=== PATIENT | male | born 1965 | race Hispanic/Latino ===

== ENCOUNTER → 2017-09-11 | Outpatient (CLI) | payer SELFPAY | END | disposition home or self-care (01) | LOC: OIH 14:20 | PROVIDERS: ATTEND Internal Medicine Cardiovascular Disease | DX: Z13.6 Encounter for screening for cardiovascular disorders (principal) | CPT/HCPCS: 75571 ==

== ENCOUNTER 2022-01-14 10:53 | Inpatient (IN) | payer OTHER ==
[~2022-01-14] VITALS: Ht 185.4 cm; Wt 98.9 kg
[~2022-01-14 10:53] MED LIST: AMLO5TAB4 PO; ASPI-556 PO; ATOR20TA65 PO; FERR325T22 PO; GLIP1TAB5 PO
[2022-01-14 11:15] LABS: CREATININE 1.3 mg/dL (0.5-1.5); POTASSIUM 4.1 mmol/L (3.5-5.1)
[2022-01-14 11:18] LABS: BASOPHILS % (AUTO) 0.7 % (0.0-5.0); EOSINOPHILS % (AUTO) 2.3 % (0.0-8.0); HEMATOCRIT 40.7 % (42-54); LYMPHOCYTES % (AUTO) 27.2 % (21.0-51.0); MEAN CORPUSCULAR HEMOGLOBIN 29.2 pg (27.0-33.0); MEAN CORPUSCULAR HGB CONC 34.6 g/dL (32.0-36.0); MEAN CORPUSCULAR VOLUME 84.3 fL (79-99); NEUTROPHILS % (AUTO) 60.5 % (40.0-77.0); PLATELET COUNT (AUTO) 245 K/uL (130-400); RED BLOOD CELL COUNT(AUTO) 4.83 MIL/uL (4.50-6.20); RED CELL DISTRIBUTION WIDTH 13.8 % (11.0-15.5); WHITE BLOOD COUNT (AUTO) 7.5 K/uL (4.8-10.8)
[2022-01-14 11:19] LABS: ALBUMIN 3.7 g/dL (3.5-5.0); MAGNESIUM 1.8 mg/dL (1.80-2.40); TOTAL PROTEIN, SERUM 7.2 g/dL (6.0-8.3)
[2022-01-14 11:36] LABS: APPEARANCE,URINE CLEAR (CLEAR); BILIRUBIN,URINE NEGATIVE (NEGATIVE); COLOR,URINE LIGHT-YELLOW (YELLOW); GLUCOSE, URINE (UA) 150 mg/dL (NEGATIVE); KETONES,URINE NEGATIVE (NEGATIVE); LEUKOCYTE ESTERASE ,URINE NEGATIVE Leu/uL (NEGATIVE); NITRATE,URINE NEGATIVE (NEGATIVE); OCCULT BLOOD,URINE NEGATIVE (NEGATIVE); PH,URINE 6.5 (5.0-8.0); PROTEIN,URINE 200 mg/dL (NEGATIVE); UROBILINOGEN,URINE 0.2 mg/dL (0.2-1.0)
[2022-01-14 11:38] LABS: MUCUS,URINE RARE LPF (None Seen); RBC,URINE 0-1 /HPF (0-1); WBC,URINE 0-1 /HPF (0-1)
[2022-01-14] MEDS ORDERED: LISI20TA24 PO (13:59)
[2022-01-14] MEDS ORDERED: METO-391 PO (13:59)
[2022-01-14] MEDS ORDERED: MAGN400C PO (13:59)
[2022-01-14] MEDS ORDERED: CILO50TA PO (13:59)
[2022-01-14 14:43] VITALS: BP 150/95
[2022-01-14 16:00] VITALS: BP 145/88
[2022-01-14] MEDS ORDERED: GLIPIZIDE 5 MG TABLET PO SCH (18:00)
[2022-01-14] MEDS ORDERED: METFORMIN HCL 500 MG TABLET PO SCH (18:00)
[2022-01-14 19:18] VITALS: BP 153/95
[2022-01-14] MEDS: FAMOTIDINE 20MG VIAL IV SCH (20:51)
[2022-01-14] MEDS: ATORVASTATIN 20 MG TABLET PO SCH (20:51)
[2022-01-15] VITALS (7 sets, daily range): BP systolic 104–136; BP diastolic 56–98
[2022-01-15] MEDS: CILOSTAZOL 100 MG TAB PO SCH ×2 (06:42→17:08)
[2022-01-15] MEDS ORDERED: POTASSIUM CHLORIDE 10% ELIXIR 20 MEQ/15 ML UDCUP PO PRN (07:00)
[2022-01-15] MEDS ORDERED: KCL 20 MEQ ERTAB PO PRN (07:00)
[2022-01-15] MEDS ORDERED: DEXTROSE 50%-WATER 50 ML DISP.SYRIN IV PRN (07:00)
[2022-01-15] MEDS ORDERED: LIDOCAINE HCL-MPF 1% 2ML VIAL IV PRN (07:00)
[2022-01-15] MEDS ORDERED: POTASSIUM CHLORIDE 20MEQ/100ML 100 ML IV PRN (07:00)
[2022-01-15] MEDS ORDERED: REGADENOSON 0.4 MG/5 ML PF SYG IVP SCH (07:00)
[2022-01-15] MEDS ORDERED: GLUCAGON 1MG KIT 1 MG ML IM PRN (07:00)
[2022-01-15] MEDS: INSULIN HUMULIN R 100 UNIT/ML 3ML SQ SCH ×4 (07:30→22:20)
[2022-01-15] MEDS: AMLODIPINE 5 MG TAB PO SCH (08:56)
[2022-01-15] MEDS: LISINOPRIL 20 MG TABLET PO SCH (08:56)
[2022-01-15] MEDS: METOPROLOL SUCCINATE 50 MG TAB.SR.24H PO SCH (08:56)
[2022-01-15] MEDS: ASPIRIN 81 MG EC TAB PO SCH (08:56)
[2022-01-15] MEDS: FAMOTIDINE 20MG VIAL IV SCH ×2 (08:56→22:14)
[2022-01-15] MEDS: MAGNESIUM OXIDE 400 MG TABLET PO SCH (08:56)
[2022-01-15] MEDS: ENOXAPARIN SODIUM 40 MG/0.4 ML SYRINGE SQ SCH (08:57)
[2022-01-15] MEDS: ATORVASTATIN 20 MG TABLET PO SCH (22:14)
[2022-01-16] VITALS (11 sets, daily range): BP systolic 103–131; BP diastolic 77–95
[2022-01-16 04:18] LABS: BASOPHILS % (AUTO) 0.6 % (0.0-5.0); EOSINOPHILS % (AUTO) 3.4 % (0.0-8.0); HEMATOCRIT 41.9 % (42-54); LYMPHOCYTES % (AUTO) 27.2 % (21.0-51.0); MEAN CORPUSCULAR HEMOGLOBIN 28.9 pg (27.0-33.0); MEAN CORPUSCULAR HGB CONC 33.9 g/dL (32.0-36.0); MEAN CORPUSCULAR VOLUME 85.2 fL (79-99); MONOCYTES % (AUTO) 8.8 % (3.0-13.0); NEUTROPHILS % (AUTO) 59.8 % (40.0-77.0); PLATELET COUNT (AUTO) 245 K/uL (130-400); RED BLOOD CELL COUNT(AUTO) 4.92 MIL/uL (4.50-6.20); RED CELL DISTRIBUTION WIDTH 13.9 % (11.0-15.5); WHITE BLOOD COUNT (AUTO) 8.5 K/uL (4.8-10.8)
[2022-01-16 04:33] LABS: CREATININE 1.3 mg/dL (0.5-1.5); MAGNESIUM 1.7 mg/dL (1.80-2.40); POTASSIUM 4.1 mmol/L (3.5-5.1)
[2022-01-16] MEDS: MAGNESIUM 2GM PREMIX 50ML 50 ML IV PRN (05:39)
[2022-01-16] MEDS: INSULIN HUMULIN R 100 UNIT/ML 3ML SQ SCH ×4 (05:51→21:00)
[2022-01-16 06:58] LABS: INR 0.94 (0.85-1.15); PROTHROMBIN TIME 10.3 SEC (9.6-11.6)
[2022-01-16 06:59] LABS: PARTIAL THROMBOPLASTIN TIME 28.5 SEC (26.3-35.5)
[2022-01-16] MEDS: CILOSTAZOL 100 MG TAB PO SCH ×2 (07:30→16:30)
[2022-01-16] MEDS: ENOXAPARIN SODIUM 40 MG/0.4 ML SYRINGE SQ SCH (08:13)
[2022-01-16] MEDS: ASPIRIN 81 MG EC TAB PO SCH (08:18)
[2022-01-16] MEDS: MAGNESIUM OXIDE 400 MG TABLET PO SCH (08:18)
[2022-01-16] MEDS: METOPROLOL SUCCINATE 50 MG TAB.SR.24H PO SCH (08:19)
[2022-01-16] MEDS: LISINOPRIL 20 MG TABLET PO SCH (08:19)
[2022-01-16] MEDS: AMLODIPINE 5 MG TAB PO SCH (08:19)
[2022-01-16] MEDS: FAMOTIDINE 20MG VIAL IV SCH ×2 (08:19→21:02)
[2022-01-16] MEDS ORDERED: LIDOCAINE HCL 1% 20 ML VIAL ONE (08:28)
[2022-01-16] MEDS ORDERED: FENTANYL CITRATE PF 50 MCG/1 ML 2ML VIAL ONE (08:29)
[2022-01-16] MEDS ORDERED: NITROGLYCERIN 50MG VIAL ONE (08:29)
[2022-01-16] MEDS ORDERED: MIDAZOLAM HCL 1 MG/ML 2ML VIAL ONE (08:29)
[2022-01-16] MEDS ORDERED: HEPARIN 10,000 UNIT/10ML (1,000 UNIT/ML) VIAL ONE ×2 (08:29→09:22)
[2022-01-16] MEDS ORDERED: IOHEXOL 350 MG/ML 100ML INFUS..BTL IV ONE (08:29)
[2022-01-16] MEDS ORDERED: VERAPAMIL HCL 2.5 MG/ML VIAL ONE (08:53)
[2022-01-16] MEDS ORDERED: IOHEXOL-350 75 ML VIAL IV ONE (09:20)
[2022-01-16] MEDS ORDERED: 0.9%NACL 1000ML 1,000 ML IV SCH (10:30)
[2022-01-16] MEDS: ATORVASTATIN 20 MG TABLET PO SCH (21:02)
[2022-01-17] VITALS (7 sets, daily range): BP systolic 106–128; BP diastolic 75–90
[2022-01-17 03:49] LABS: ABG HCO3 22.7 mmol/L (21.0-28.0); ABG OXYGEN SATURATION 96.1 % (95.0-99.0); ABG PCO2 35 mmHg (35-48)
[2022-01-17 04:02] LABS: BASOPHILS % (AUTO) 0.6 % (0.0-5.0); EOSINOPHILS % (AUTO) 2.7 % (0.0-8.0); HEMATOCRIT 41.6 % (42-54); LYMPHOCYTES % (AUTO) 24.9 % (21.0-51.0); MEAN CORPUSCULAR HEMOGLOBIN 28.8 pg (27.0-33.0); MEAN CORPUSCULAR HGB CONC 33.2 g/dL (32.0-36.0); MEAN CORPUSCULAR VOLUME 86.8 fL (79-99); MONOCYTES % (AUTO) 8.6 % (3.0-13.0); PLATELET COUNT (AUTO) 254 K/uL (130-400); RED BLOOD CELL COUNT(AUTO) 4.79 MIL/uL (4.50-6.20); RED CELL DISTRIBUTION WIDTH 14.2 % (11.0-15.5); WHITE BLOOD COUNT (AUTO) 8.9 K/uL (4.8-10.8)
[2022-01-17 04:12] LABS: INR 0.95 (0.85-1.15); PROTHROMBIN TIME 10.4 SEC (9.6-11.6)
[2022-01-17 04:13] LABS: CREATININE 1.4 mg/dL (0.5-1.5); PARTIAL THROMBOPLASTIN TIME 28.2 SEC (26.3-35.5); POTASSIUM 4.6 mmol/L (3.5-5.1)
[2022-01-17 04:18] LABS: HEMOGLOBIN A1C 8.3 % (4.0-6.0)
[2022-01-17 04:19] LABS: ALBUMIN 3.2 g/dL (3.5-5.0); MAGNESIUM 1.9 mg/dL (1.80-2.40); TOTAL PROTEIN, SERUM 6.8 g/dL (6.0-8.3)
[2022-01-17 04:28] LABS: B-TYPE NATRIURETIC PEPTIDE < 5 pg/mL (0-100)
[2022-01-17] MEDS: MAGNESIUM 2GM PREMIX 50ML 50 ML IV PRN (04:57)
[2022-01-17] MEDS: INSULIN HUMULIN R 100 UNIT/ML 3ML SQ SCH ×4 (05:38→20:24)
[2022-01-17] MEDS ORDERED: CEFAZOLIN SODIUM 1 GM VIAL ONE (05:54)
[2022-01-17] MEDS ORDERED: PAPAVERINE HCL 30 MG/ML 2ML VIAL ONE (05:54)
[2022-01-17] MEDS ORDERED: AMINOCAPROIC ACID 5,000MG VIAL 15,000 MG in 0.9% NACL 500ML IV.SOLN 420 ML IV PRN (07:00)
[2022-01-17] MEDS ORDERED: NOREPINEPHRINE BITARTRATE 8 MG in 0.9% NACL 250ML 250 ML IV PRN (07:00)
[2022-01-17] MEDS ORDERED: EPINEPHRINE PF 1MG (1:1,000) 10 MG in 0.9% NACL 250ML 240 ML IV PRN (07:00)
[2022-01-17] MEDS: CILOSTAZOL 100 MG TAB PO SCH ×2 (07:10→16:03)
[2022-01-17] MEDS: ASPIRIN 81 MG EC TAB PO SCH (07:12)
[2022-01-17] MEDS: ENOXAPARIN SODIUM 40 MG/0.4 ML SYRINGE SQ SCH (07:12)
[2022-01-17] MEDS: MAGNESIUM OXIDE 400 MG TABLET PO SCH (07:12)
[2022-01-17] MEDS: AMLODIPINE 5 MG TAB PO SCH (07:14)
[2022-01-17] MEDS: LISINOPRIL 20 MG TABLET PO SCH (07:14)
[2022-01-17] MEDS: FAMOTIDINE 20MG VIAL IV SCH ×2 (07:21→20:25)
[2022-01-17] MEDS: METOPROLOL SUCCINATE 50 MG TAB.SR.24H PO SCH (07:21)
[2022-01-17] MEDS ORDERED: 0.9%NACL 1000ML 1,000 ML IV ONE (07:32)
[2022-01-17] MEDS ORDERED: CEFAZOLIN SODIUM 1 GM VIAL IVP SCH (08:00)
[2022-01-17] MEDS: ATORVASTATIN 20 MG TABLET PO SCH (20:25)
[2022-01-18 03:59] LABS: BASOPHILS % (AUTO) 0.4 % (0.0-5.0); EOSINOPHILS % (AUTO) 3.1 % (0.0-8.0); HEMATOCRIT 43.6 % (42-54); LYMPHOCYTES % (AUTO) 22.4 % (21.0-51.0); MEAN CORPUSCULAR HEMOGLOBIN 28.9 pg (27.0-33.0); MEAN CORPUSCULAR HGB CONC 33.3 g/dL (32.0-36.0); MONOCYTES % (AUTO) 7.7 % (3.0-13.0); NEUTROPHILS % (AUTO) 66.2 % (40.0-77.0); PLATELET COUNT (AUTO) 234 K/uL (130-400); RED BLOOD CELL COUNT(AUTO) 5.01 MIL/uL (4.50-6.20); RED CELL DISTRIBUTION WIDTH 14.1 % (11.0-15.5)
[2022-01-18 04:09] LABS: CREATININE 1.3 mg/dL (0.5-1.5); POTASSIUM 5.4 mmol/L (3.5-5.1)
[2022-01-18 05:14] VITALS: BP 130/94
[2022-01-18] MEDS: CILOSTAZOL 100 MG TAB PO SCH ×2 (06:28→16:15)
[2022-01-18] MEDS: INSULIN HUMULIN R 100 UNIT/ML 3ML SQ SCH ×4 (06:28→21:00)
[2022-01-18 07:00] VITALS: BP 130/86
[2022-01-18] MEDS: METOPROLOL SUCCINATE 50 MG TAB.SR.24H PO SCH (08:35)
[2022-01-18] MEDS: AMLODIPINE 5 MG TAB PO SCH (08:35)
[2022-01-18] MEDS: MAGNESIUM OXIDE 400 MG TABLET PO SCH (08:35)
[2022-01-18] MEDS: FAMOTIDINE 20MG VIAL IV SCH ×2 (08:35→21:03)
[2022-01-18] MEDS: ASPIRIN 81 MG EC TAB PO SCH (08:35)
[2022-01-18] MEDS: LISINOPRIL 20 MG TABLET PO SCH ×2 (08:35→09:53)
[2022-01-18] MEDS: ENOXAPARIN SODIUM 40 MG/0.4 ML SYRINGE SQ SCH (09:00)
[2022-01-18] MEDS ORDERED: KAYEXALATE 15GM/60ML PO SCH (10:00)
[2022-01-18 11:00] VITALS: BP 123/91
[2022-01-18 15:00] VITALS: BP 126/98
[2022-01-18 20:31] VITALS: BP 143/68
[2022-01-18] MEDS: ATORVASTATIN 20 MG TABLET PO SCH (21:03)
[2022-01-19] VITALS (38 sets, daily range): BP systolic 80–133; BP diastolic 45–90
[2022-01-19] MEDS: INSULIN HUMULIN R 100 UNIT/ML 3ML SQ SCH (06:39)
[2022-01-19] MEDS: CILOSTAZOL 100 MG TAB PO SCH (06:40)
[2022-01-19] MEDS: ASPIRIN 81 MG EC TAB PO SCH (08:39)
[2022-01-19 08:59] LABS: HEMATOCRIT 46.8 % (42-54); MEAN CORPUSCULAR HEMOGLOBIN 28.8 pg (27.0-33.0); MEAN CORPUSCULAR VOLUME 84.8 fL (79-99); PLATELET COUNT (AUTO) 263 K/uL (130-400); RED BLOOD CELL COUNT(AUTO) 5.52 MIL/uL (4.50-6.20); RED CELL DISTRIBUTION WIDTH 14.2 % (11.0-15.5); WHITE BLOOD COUNT (AUTO) 9.2 K/uL (4.8-10.8)
[2022-01-19] MEDS: ENOXAPARIN SODIUM 40 MG/0.4 ML SYRINGE SQ SCH (09:00)
[2022-01-19 09:07] LABS: CREATININE 1.5 mg/dL (0.5-1.5); MAGNESIUM 1.8 mg/dL (1.80-2.40); POTASSIUM 4.3 mmol/L (3.5-5.1)
[2022-01-19] MEDS: METOPROLOL SUCCINATE 50 MG TAB.SR.24H PO SCH (09:15)
[2022-01-19] MEDS: AMLODIPINE 5 MG TAB PO SCH (09:15)
[2022-01-19] MEDS: MAGNESIUM OXIDE 400 MG TABLET PO SCH (09:15)
[2022-01-19] MEDS: FAMOTIDINE 20MG VIAL IV SCH ×2 (09:15→22:13)
[2022-01-19] MEDS: LISINOPRIL 20 MG TABLET PO SCH (09:16)
[2022-01-19 09:33] LABS: EOSINOPHILS % (MANUAL) 1 % (1-6); LYMPHOCYTES % (MANUAL) 24 % (22-44); MAN.DIFF COMMENT-IMPRESSION MANUAL DIFFERENTIAL; MONOCYTES % (MANUAL) 9 % (2-9); SEGMENTED NEUTROPHILS % 66 % (40-70)
[2022-01-19 09:34] LABS: PLATELET MORPHOLOGY COMMENT ADEQUATE
[2022-01-19] MEDS ORDERED: 0.9%NACL 1000ML 1,000 ML IV ONE (09:52)
[2022-01-19] MEDS ORDERED: ONDANSETRON 4MG INJ ONE (11:30)
[2022-01-19] MEDS ORDERED: PROPOFOL 10 MG/ML 20ML VIAL IV ONE (11:30)
[2022-01-19] MEDS ORDERED: ETOMIDATE 20MG VIAL ONE (11:30)
[2022-01-19] MEDS ORDERED: FENTANYL CITRATE PF 50 MCG/1 ML 20ML VIAL IJ ONE (11:31)
[2022-01-19] MEDS ORDERED: ROCURONIUM 10MG/1ML SYR 10 MG/ML ML ONE ×2 (11:31→13:15)
[2022-01-19] MEDS ORDERED: MIDAZOLAM HCL 1 MG/ML 5ML VIAL ONE (11:31)
[2022-01-19] MEDS ORDERED: PHENYLEPHRINE HCL 10 MG/ML 1ML VIAL IV ONE ×2 (11:37)
[2022-01-19] MEDS ORDERED: ALBUMIN (HUMAN) 5% 500 ML IV ONE (11:43)
[2022-01-19] MEDS ORDERED: NITROGLYCERIN 50MG/D5W 250ML 1 BOT ONE (11:48)
[2022-01-19] MEDS ORDERED: CEFAZOLIN SODIUM 2 GM VIAL IVP ONE (12:16)
[2022-01-19 12:40] LABS: ABG BASE EXCESS -2.8 mmol/L (-2.0-3.0); ABG HCO3 20.8 mmol/L (21.0-28.0); ABG OXYGEN SATURATION 99.8 % (95.0-99.0); ABG PCO2 33 mmHg (35-48)
[2022-01-19] MEDS ORDERED: POTASSIUM CHLORIDE 20MEQ/100ML 100 ML IV ONE (12:45)
[2022-01-19] MEDS ORDERED: LIDOCAINE 2G/250ML 250 ML IV PRN (13:00)
[2022-01-19] MEDS ORDERED: AMIODARONE 150MG VIAL ONE (13:25)
[2022-01-19 13:51] LABS: ABG OXYGEN SATURATION 89.6 % (95.0-99.0); BASE EXCESS,VENOUS BLOOD GAS -3.2 (-2.0-3.0); HCO3,VENOUS BLOOD GAS 22.5 (21.0-28.0); PCO2,VENOUS BLOOD GAS 43 (35-48); PH,VENOUS BLOOD GAS 7.338 (7.350-7.450)
[2022-01-19] MEDS ORDERED: SODIUM BICARB 50MEQ 50ML VIAL 250 ML ONE (13:57)
[2022-01-19] MEDS ORDERED: NITROGLYCERIN 50MG/D5W 250ML 250 BOT IV SCH (14:00)
[2022-01-19] MEDS ORDERED: 0.9% NACL 500ML IV.SOLN 500 ML IV SCH (14:00)
[2022-01-19] MEDS ORDERED: 0.9%NACL 1000ML 1,000 ML IV SCH (14:00)
[2022-01-19] MEDS ORDERED: EPINEPHRINE PF 1MG (1:1,000) 10 MG in 0.9% NACL 250ML 240 ML IV PRN (14:00)
[2022-01-19] MEDS ORDERED: POTASSIUM PHOS 15 mMOL+NS250ML 250 ML IV PRN (14:00)
[2022-01-19] MEDS ORDERED: DEXTROSE 50%-WATER 50 ML DISP.SYRIN IV PRN (14:00)
[2022-01-19] MEDS ORDERED: ONDANSETRON 4MG INJ IV PRN (14:00)
[2022-01-19] MEDS ORDERED: PROPOFOL 1000 MG/100 ML 100 ML IV PRN (14:00)
[2022-01-19] MEDS ORDERED: GLUCAGON 1MG KIT 1 MG ML IM PRN (14:00)
[2022-01-19] MEDS ORDERED: MORPHINE 4 MG SYG IV PRN (14:00)
[2022-01-19] MEDS ORDERED: AMINOCAPROIC ACID 5,000MG VIAL 15,000 MG in 0.9% NACL 250ML 250 ML IV SCH (14:00)
[2022-01-19] MEDS ORDERED: ALBUMIN (HUMAN) 5% 250 ML IV PRN (14:00)
[2022-01-19] MEDS ORDERED: ACETAMINOPHEN 650 MG SUPPOSITORY RC PRN (14:00)
[2022-01-19] MEDS ORDERED: MORPHINE 2 MG SYG IV PRN (14:00)
[2022-01-19] MEDS ORDERED: ACETAMINOPHEN 325 MG TAB PO PRN ×2 (14:00)
[2022-01-19] MEDS ORDERED: 0.9%NACL 10ML VIAL IVP PRN (14:00)
[2022-01-19] MEDS ORDERED: CALCIUM GLUC 1GM 1 GM in 0.9%NACL 50ML 50 ML IV PRN (14:00)
[2022-01-19] MEDS ORDERED: NOREPINEPHRIN 4MG/NS 250ML 250 ML IV PRN (14:00)
[2022-01-19 14:13] LABS: ABG BASE EXCESS -1.1 mmol/L (-2.0-3.0); ABG HCO3 23.8 mmol/L (21.0-28.0); ABG OXYGEN SATURATION 91.3 % (95.0-99.0); ABG PCO2 41 mmHg (35-48)
[2022-01-19 14:42] LABS: ABG HCO3 23.3 mmol/L (21.0-28.0); ABG OXYGEN SATURATION 89.5 % (95.0-99.0); ABG PCO2 42 mmHg (35-48)
[2022-01-19] MEDS ORDERED: MAGNESIUM SULFATE 1 GM/2 ML VIAL ONE (14:48)
[2022-01-19] MEDS ORDERED: HEPARIN 10,000 UNIT/10ML (1,000 UNIT/ML) VIAL ONE (14:53)
[2022-01-19 15:46] LABS: ABG BASE EXCESS 0.8 mmol/L (-2.0-3.0); ABG HCO3 24.5 mmol/L (21.0-28.0); ABG PCO2 36 mmHg (35-48)
[2022-01-19 15:46] LABS: HEMATOCRIT 35.1 % (42-54); MEAN CORPUSCULAR HEMOGLOBIN 29.2 pg (27.0-33.0); MEAN CORPUSCULAR HGB CONC 34.2 g/dL (32.0-36.0); MEAN CORPUSCULAR VOLUME 85.4 fL (79-99); RED BLOOD CELL COUNT(AUTO) 4.11 MIL/uL (4.50-6.20); RED CELL DISTRIBUTION WIDTH 13.8 % (11.0-15.5); WHITE BLOOD COUNT (AUTO) 26.5 K/uL (4.8-10.8)
[2022-01-19 15:59] LABS: CREATININE 1.3 mg/dL (0.5-1.5); PHOSPHORUS 4.9 mg/dL (2.5-4.9); POTASSIUM 3.4 mmol/L (3.5-5.1)
[2022-01-19 16:00] LABS: INR 1.11 (0.85-1.15)
[2022-01-19] MEDS: POTASSIUM CHLORIDE 20MEQ/100ML 100 ML IV PRN ×5 (16:00→22:12)
[2022-01-19 16:01] LABS: PARTIAL THROMBOPLASTIN TIME 24.8 SEC (26.3-35.5)
[2022-01-19] MEDS: INSULIN REGULAR, HUMAN 3ML 100 UNIT in 0.9%NACL 100ML 99 ML IV SCH ×2 (16:42)
[2022-01-19 16:48] LABS: ABG BASE EXCESS -2.2 mmol/L (-2.0-3.0); ABG HCO3 22.8 mmol/L (21.0-28.0); ABG OXYGEN SATURATION 98.4 % (95.0-99.0); ABG PCO2 40 mmHg (35-48)
[2022-01-19] MEDS: SODIUM BICARB 50MEQ 50ML VIAL IV PRN ×3 (16:54→20:18)
[2022-01-19 17:55] LABS: ABG BASE EXCESS -1.8 mmol/L (-2.0-3.0); ABG HCO3 22.7 mmol/L (21.0-28.0); ABG OXYGEN SATURATION 96.2 % (95.0-99.0); ABG PCO2 38 mmHg (35-48)
[2022-01-19] MEDS: CEFAZOLIN SODIUM 1 GM VIAL IV SCH (18:16)
[2022-01-19 18:32] LABS: ABG BASE EXCESS 1.3 mmol/L (-2.0-3.0); ABG HCO3 25.7 mmol/L (21.0-28.0); ABG OXYGEN SATURATION 96.4 % (95.0-99.0); ABG PCO2 40 mmHg (35-48)
[2022-01-19] MEDS: TRAMADOL HCL 50 MG TABLET PO PRN (19:35)
[2022-01-19 20:09] LABS: ABG BASE EXCESS -2.5 mmol/L (-2.0-3.0); ABG HCO3 22.6 mmol/L (21.0-28.0); ABG OXYGEN SATURATION 97.4 % (95.0-99.0); ABG PCO2 41 mmHg (35-48)
[2022-01-19 22:08] LABS: ABG BASE EXCESS 0.6 mmol/L (-2.0-3.0); ABG HCO3 25.1 mmol/L (21.0-28.0); ABG OXYGEN SATURATION 97.7 % (95.0-99.0); ABG PCO2 40 mmHg (35-48)
[2022-01-20] VITALS (62 sets, daily range): BP systolic 85–152; BP diastolic 40–148
[2022-01-20 00:14] LABS: ABG BASE EXCESS 0.9 mmol/L (-2.0-3.0); ABG OXYGEN SATURATION 96.6 % (95.0-99.0); ABG PCO2 38 mmHg (35-48)
[2022-01-20] MEDS: POTASSIUM CHLORIDE 20MEQ/100ML 100 ML IV PRN (00:19)
[2022-01-20 02:21] LABS: ABG BASE EXCESS 3.6 mmol/L (-2.0-3.0); ABG HCO3 28.6 mmol/L (21.0-28.0); ABG OXYGEN SATURATION 96.3 % (95.0-99.0); ABG PCO2 45 mmHg (35-48)
[2022-01-20] MEDS: CEFAZOLIN SODIUM 1 GM VIAL IV SCH ×2 (02:41→11:00)
[2022-01-20] MEDS ORDERED: ASPIRIN 81MG CHEW TAB PO ONE (03:00)
[2022-01-20 04:01] LABS: ABG BASE EXCESS 2.4 mmol/L (-2.0-3.0); ABG HCO3 27.1 mmol/L (21.0-28.0); ABG OXYGEN SATURATION 96.8 % (95.0-99.0); ABG PCO2 42 mmHg (35-48)
[2022-01-20 05:27] LABS: HEMATOCRIT 34.9 % (42-54); MEAN CORPUSCULAR HEMOGLOBIN 28.9 pg (27.0-33.0); MEAN CORPUSCULAR HGB CONC 33.2 g/dL (32.0-36.0); RED BLOOD CELL COUNT(AUTO) 4.01 MIL/uL (4.50-6.20); RED CELL DISTRIBUTION WIDTH 14.6 % (11.0-15.5); WHITE BLOOD COUNT (AUTO) 14.8 K/uL (4.8-10.8)
[2022-01-20 05:42] LABS: CREATININE 1.4 mg/dL (0.5-1.5); MAGNESIUM 1.6 mg/dL (1.80-2.40); PHOSPHORUS 4.9 mg/dL (2.5-4.9); POTASSIUM 4.2 mmol/L (3.5-5.1)
[2022-01-20 05:45] LABS: INR 1.05 (0.85-1.15); PROTHROMBIN TIME 11.4 SEC (9.6-11.6)
[2022-01-20 05:46] LABS: PARTIAL THROMBOPLASTIN TIME 27.3 SEC (26.3-35.5)
[2022-01-20] MEDS ORDERED: LIDOCAINE 2G/250ML 250 ML IV SCH (07:30)
[2022-01-20] MEDS: INSULIN REGULAR, HUMAN 3ML 100 UNIT in 0.9%NACL 100ML 99 ML IV SCH ×2 (07:35)
[2022-01-20] MEDS: MAGNESIUM 2GM PREMIX 50ML 50 ML IV PRN (07:37)
[2022-01-20] MEDS ORDERED: LIDOCAINE 2G/250ML 250 ML IV ONE (08:14)
[2022-01-20] MEDS: ASPIRIN 81MG CHEW TAB PO SCH (08:38)
[2022-01-20] MEDS: FAMOTIDINE 20MG VIAL IV SCH ×2 (08:38→20:00)
[2022-01-20] MEDS ORDERED: CEFAZOLIN SODIUM 1 GM VIAL ONE (13:27)
[2022-01-20] MEDS: TRAMADOL HCL 50 MG TABLET PO PRN ×2 (13:29→18:33)
[2022-01-20] MEDS: ATORVASTATIN 40 MG TABLET PO SCH (20:00)
[2022-01-21] VITALS (22 sets, daily range): BP systolic 109–138; BP diastolic 71–99
[2022-01-21 03:32] LABS: BASOPHILS % (AUTO) 0.2 % (0.0-5.0); EOSINOPHILS % (AUTO) 0.1 % (0.0-8.0); HEMATOCRIT 33.7 % (42-54); LYMPHOCYTES % (AUTO) 8.9 % (21.0-51.0); MEAN CORPUSCULAR HEMOGLOBIN 28.8 pg (27.0-33.0); MEAN CORPUSCULAR HGB CONC 32.9 g/dL (32.0-36.0); MEAN CORPUSCULAR VOLUME 87.5 fL (79-99); MONOCYTES % (AUTO) 9.4 % (3.0-13.0); NEUTROPHILS % (AUTO) 80.8 % (40.0-77.0); PLATELET COUNT (AUTO) 143 K/uL (130-400); RED BLOOD CELL COUNT(AUTO) 3.85 MIL/uL (4.50-6.20); RED CELL DISTRIBUTION WIDTH 14.6 % (11.0-15.5); WHITE BLOOD COUNT (AUTO) 16.9 K/uL (4.8-10.8)
[2022-01-21 03:47] LABS: CREATININE 1.1 mg/dL (0.5-1.5); MAGNESIUM 1.7 mg/dL (1.80-2.40); POTASSIUM 4.2 mmol/L (3.5-5.1)
[2022-01-21] MEDS: TRAMADOL HCL 50 MG TABLET PO PRN ×3 (04:17→21:10)
[2022-01-21] MEDS ORDERED: DEXTROSE 50%-WATER 50 ML DISP.SYRIN IV PRN (08:00)
[2022-01-21] MEDS ORDERED: GLUCAGON 1MG KIT 1 MG ML IM PRN (08:00)
[2022-01-21] MEDS: FAMOTIDINE 20MG TAB PO SCH (09:04)
[2022-01-21] MEDS: ASPIRIN 81MG CHEW TAB PO SCH (09:04)
[2022-01-21] MEDS: MAGNESIUM 2GM PREMIX 50ML 50 ML IV PRN (09:05)
[2022-01-21] MEDS ORDERED: METOPROLOL TARTRATE 25 MG TAB PO SCH (10:00)
[2022-01-21] MEDS: INSULIN HUMULIN R 100 UNIT/ML 3ML SQ SCH ×3 (11:15→19:43)
[2022-01-21] MEDS ORDERED: FUROSEMIDE 20 MG TABLET PO SCH (11:30)
[2022-01-21] MEDS: METOPROLOL TARTRATE 25 MG TAB PO SCH (21:08)
[2022-01-21] MEDS: ATORVASTATIN 40 MG TABLET PO SCH (21:08)
[2022-01-22 03:52] VITALS: BP 155/85
[2022-01-22 04:08] LABS: CREATININE 1.1 mg/dL (0.5-1.5); HEMATOCRIT 31.4 % (42-54); MEAN CORPUSCULAR HEMOGLOBIN 29.3 pg (27.0-33.0); MEAN CORPUSCULAR HGB CONC 33.8 g/dL (32.0-36.0); MEAN CORPUSCULAR VOLUME 86.7 fL (79-99); POTASSIUM 4.5 mmol/L (3.5-5.1); RED BLOOD CELL COUNT(AUTO) 3.62 MIL/uL (4.50-6.20); RED CELL DISTRIBUTION WIDTH 14.1 % (11.0-15.5); WHITE BLOOD COUNT (AUTO) 14.1 K/uL (4.8-10.8)
[2022-01-22] MEDS: INSULIN HUMULIN R 100 UNIT/ML 3ML SQ SCH ×4 (06:41→21:00)
[2022-01-22 07:00] VITALS: BP 117/79
[2022-01-22] MEDS: METOPROLOL TARTRATE 25 MG TAB PO SCH ×2 (08:38→21:05)
[2022-01-22] MEDS: ASPIRIN 81MG CHEW TAB PO SCH (08:38)
[2022-01-22] MEDS: FUROSEMIDE 20 MG TABLET PO SCH (08:38)
[2022-01-22] MEDS: FAMOTIDINE 20MG TAB PO SCH (08:38)
[2022-01-22] MEDS: ENOXAPARIN SODIUM 30 MG/0.3 ML SQ SCH (08:44)
[2022-01-22 12:00] VITALS: BP 106/65
[2022-01-22] MEDS ORDERED: COLCHICINE 0.6 MG TABLET PO SCH ×4 (15:30→17:00)
[2022-01-22 16:00] VITALS: BP 109/68
[2022-01-22] MEDS: TRAMADOL HCL 50 MG TABLET PO PRN (17:56)
[2022-01-22] MEDS ORDERED: POLYETHYLENE GLYCOL 3350 17 GM POWD.PACK PO ONE (19:30)
[2022-01-22] MEDS ORDERED: DOCUSATE SODIUM 100 MG CAP PO PRN (19:30)
[2022-01-22 20:16] VITALS: BP 106/65
[2022-01-22] MEDS: ATORVASTATIN 40 MG TABLET PO SCH (21:05)
[2022-01-22 23:39] VITALS: BP 118/78
[2022-01-23 03:41] VITALS: BP 114/77
[2022-01-23 04:10] LABS: HEMATOCRIT 30.7 % (42-54); MEAN CORPUSCULAR HEMOGLOBIN 29.1 pg (27.0-33.0); MEAN CORPUSCULAR HGB CONC 33.9 g/dL (32.0-36.0); MEAN CORPUSCULAR VOLUME 85.8 fL (79-99); RED BLOOD CELL COUNT(AUTO) 3.58 MIL/uL (4.50-6.20); RED CELL DISTRIBUTION WIDTH 14.1 % (11.0-15.5); WHITE BLOOD COUNT (AUTO) 10.3 K/uL (4.8-10.8)
[2022-01-23 04:18] LABS: CREATININE 1.1 mg/dL (0.5-1.5); POTASSIUM 3.8 mmol/L (3.5-5.1)
[2022-01-23 07:00] VITALS: BP 115/76
[2022-01-23] MEDS: INSULIN HUMULIN R 100 UNIT/ML 3ML SQ SCH ×4 (07:28→20:04)
[2022-01-23] MEDS: METOPROLOL TARTRATE 25 MG TAB PO SCH ×2 (07:52→20:04)
[2022-01-23] MEDS: FAMOTIDINE 20MG TAB PO SCH (07:52)
[2022-01-23] MEDS: FUROSEMIDE 20 MG TABLET PO SCH (07:53)
[2022-01-23] MEDS: ASPIRIN 81MG CHEW TAB PO SCH (07:53)
[2022-01-23] MEDS: POLYETHYLENE GLYCOL 3350 17 GM POWD.PACK PO SCH (07:54)
[2022-01-23] MEDS: ENOXAPARIN SODIUM 30 MG/0.3 ML SQ SCH (07:54)
[2022-01-23] MEDS: TRAMADOL HCL 50 MG TABLET PO PRN (07:57)
[2022-01-23 11:00] VITALS: BP 99/72
[2022-01-23 16:00] VITALS: BP 110/65
[2022-01-23 19:50] VITALS: BP 120/82
[2022-01-23] MEDS: ATORVASTATIN 40 MG TABLET PO SCH (20:04)
[2022-01-23 23:46] VITALS: BP 113/67
[2022-01-24 03:38] VITALS: BP 125/86
[2022-01-24] MEDS: INSULIN HUMULIN R 100 UNIT/ML 3ML SQ SCH ×2 (06:42→11:00)
[2022-01-24] MEDS: POLYETHYLENE GLYCOL 3350 17 GM POWD.PACK PO SCH (07:52)
[2022-01-24] MEDS: METOPROLOL TARTRATE 25 MG TAB PO SCH (07:53)
[2022-01-24] MEDS: ASPIRIN 81MG CHEW TAB PO SCH (07:53)
[2022-01-24] MEDS: FUROSEMIDE 20 MG TABLET PO SCH (07:53)
[2022-01-24] MEDS: ENOXAPARIN SODIUM 30 MG/0.3 ML SQ SCH (07:53)
[2022-01-24] MEDS: FAMOTIDINE 20MG TAB PO SCH (07:53)
[2022-01-24 08:00] VITALS: BP 142/79
[2022-01-24 08:55] LABS: HEMATOCRIT 32.9 % (42-54); MEAN CORPUSCULAR HGB CONC 33.7 g/dL (32.0-36.0); MEAN CORPUSCULAR VOLUME 85.9 fL (79-99); RED BLOOD CELL COUNT(AUTO) 3.83 MIL/uL (4.50-6.20); WHITE BLOOD COUNT (AUTO) 9.1 K/uL (4.8-10.8)
[2022-01-24 09:05] LABS: CREATININE 1.1 mg/dL (0.5-1.5); POTASSIUM 4.3 mmol/L (3.5-5.1)
[2022-01-24] MEDS ORDERED: POTA-79 PO (09:27)
[2022-01-24] MEDS ORDERED: FURO20TA6 PO (09:27)
[2022-01-24] MEDS ORDERED: FAMO20TA8 PO (09:27)
[2022-01-24] MEDS ORDERED: LISI5TAB21 PO (09:27)
[2022-01-24] MEDS ORDERED: LISINOPRIL 5 MG TABLET PO SCH (09:30)
[2022-01-24] MEDS ORDERED: COLCHICINE 0.6 MG TABLET PO SCH ×2 (10:30→12:30)
[2022-01-24 11:14] VITALS: BP 113/82
[2022-01-25] MEDS ORDERED: COLCHICINE 0.6 MG TABLET PO SCH (09:00)
== END 2022-01-24 13:55 | disposition home or self-care (01) | DRG 233 ==
LOC: EDH 10:53 → EDHIP 10:54 → 2AH 14:40 → 2CV 01-17 07:55 → 2AH 01-17 09:11 → 2CV 01-19 10:32 → 2BH 01-20 11:00 → 2DH 01-21 14:59
PROVIDERS: ADMIT Hospitalist; ATTEND Hospitalist
PROC: 4A023N7 Measurement of Cardiac Sampling and Pressure, Left Heart, Percutaneous Approach (ICD-10-PCS; principal; 2022-01-16)
PROC: B2111ZZ Fluoroscopy of Multiple Coronary Arteries using Low Osmolar Contrast (ICD-10-PCS; 2022-01-16)
PROC: 06BQ4ZZ Excision of Left Saphenous Vein, Percutaneous Endoscopic Approach (ICD-10-PCS; 2022-01-19)
PROC: 0PH000Z Insertion of Rigid Plate Internal Fixation Device into Sternum, Open Approach (ICD-10-PCS; 2022-01-19)
PROC: 02100Z9 Bypass Coronary Artery, One Artery from Left Internal Mammary, Open Approach (ICD-10-PCS; 2022-01-19 11:46)
PROC: 0212093 Bypass Coronary Artery, Three Arteries from Coronary Artery with Autologous Venous Tissue, Open Approach (ICD-10-PCS; 2022-01-19 11:46)
DX: I25.10 Atherosclerotic heart disease of native coronary artery without angina pectoris (principal); J95.1 Acute pulmonary insufficiency following thoracic surgery; J96.90 Respiratory failure, unspecified, unspecified whether with hypoxia or hypercapnia; I47.20 Ventricular tachycardia, unspecified; Z20.822 Contact with and (suspected) exposure to COVID-19; D62 Acute posthemorrhagic anemia; I42.8 Other cardiomyopathies; E83.42 Hypomagnesemia; I10 Essential (primary) hypertension; E11.65 Type 2 diabetes mellitus with hyperglycemia; I25.5 Ischemic cardiomyopathy; E78.00 Pure hypercholesterolemia, unspecified; E11.51 Type 2 diabetes mellitus with diabetic peripheral angiopathy without gangrene; E87.5 Hyperkalemia; E87.70 Fluid overload, unspecified; Z79.82 Long term (current) use of aspirin; Z79.899 Other long term (current) drug therapy; Z82.49 Family history of ischemic heart disease and other diseases of the circulatory system
CPT/HCPCS: 36415; 36600; 71045; 78452; 80048; 80053; 80061; 81001; 82435; 82803; 82947; 82948; 83036; 83605; 83735; 83880; 84100; 84132; 84295; 84484; 85018; 85025; 85027; 85347; 85610; 85730; 86850; 86900; 86901; 86923; 87635; 87641; 92978; 93005; 93017; 93306; 93356; 93454; 93880; 94002; 94150; 96374; 97039; 99156; 99157; A7048; A9500; C1769; C1887; G0378; J0282; J0610; J0690; J1644; J1650; J1815; J2001; J2250; J2370; J2405; J2440; J2704; J2785; J3010; J3475; J3480; J3490; J7030; J7040; J7120; P9045; Q9967

== ENCOUNTER → 2022-03-06 | Outpatient (CLI) | payer SELFPAY ==
[~2022-03-06] MED LIST changes: -AMLO5TAB4 PO; +FAMO20TA8 PO; -FERR325T22 PO; +FURO20TA6 PO; +LISI5TAB21 PO; +MAGN400C PO; +METO-391 PO; +POTA-79 PO
== END | disposition home or self-care (01) ==
LOC: LAB 10:18
PROVIDERS: ATTEND Internal Medicine Cardiovascular Disease
DX: I10 Essential (primary) hypertension (principal); I25.10 Atherosclerotic heart disease of native coronary artery without angina pectoris; E78.5 Hyperlipidemia, unspecified
CPT/HCPCS: 36415; 83735

== ENCOUNTER → 2022-03-21 | Outpatient (CLI) | payer SELFPAY ==
[2022-03-21 12:24] LABS: HEMOGLOBIN A1C 6.9 % (4.0-6.0)
[2022-03-21 12:29] LABS: ALBUMIN 3.7 g/dL (3.5-5.0); CREATININE 1.1 mg/dL (0.5-1.5); MAGNESIUM 1.7 mg/dL (1.80-2.40); POTASSIUM 5.3 mmol/L (3.5-5.1); TOTAL PROTEIN, SERUM 7.5 g/dL (6.0-8.3)
== END | disposition home or self-care (01) ==
LOC: LAB 09:25
PROVIDERS: ATTEND Physician Assistant
DX: I10 Essential (primary) hypertension (principal); E78.5 Hyperlipidemia, unspecified
CPT/HCPCS: 36415; 80053; 80061; 83036; 83735